=== PATIENT | female | born 1975 ===

== ENCOUNTER 2019-10-16 05:40 | Day surgery (SDC) | payer OTHER ==
[2019-10-16] MEDS ORDERED: NEURONTIN300 MG PO (08:53)
[2019-10-16] MEDS ORDERED: PERCOCET 5-3251 EACH PO (08:54)
[2019-10-16] MEDS ORDERED: RECTICARE30 GM TOP (08:54)
[2019-10-16] MEDS ORDERED: KETO10TA2 PO (08:55)
== END 2019-10-16 12:17 | disposition home or self-care (01) ==
LOC: CIR.AMB 05:40
DX: K64.4 Residual hemorrhoidal skin tags (principal); K64.8 Other hemorrhoids